=== PATIENT | female | born 1970 | race Asian ===

== ENCOUNTER → 2017-02-15 | Outpatient (CLI) | payer OTHER ==
[~2017-02-15] MED LIST: ALLO100T30 PO; ATOR20TA9 PO; CYCL-259 PO; DOXY100C2 PO; GABA300C10 PO; OMEG1CAP24 PO; OXYC-307 PO; OXYC10TA6 PO; PIND5TAB PO; PNV1TABL97 PO; TAMO20TA PO; voltaren PO
[2017-02-15 16:49] LABS: BASOPHILS # (AUTO) 0.03 x10^3/uL (0-0.1); BASOPHILS % (AUTO) 1 % (0-1); EOSINOPHILS # (AUTO) 0.31 x10^3/uL (0-0.4); EOSINOPHILS % (AUTO) 5 % (1-7); LYMPHOCYTES # (AUTO) 2.33 x10^3/uL (1-3.4); LYMPHOCYTES % (AUTO) 34 % (22-44); MD NO; MEAN CORPUSCULAR HEMOGLOBIN 29.2 pg (27.0-34.8); MEAN CORPUSCULAR HGB CONC 32.9 g/dL (32.4-35.8); MEAN CORPUSCULAR VOLUME 88.8 fL (80-100); MEAN PLATELET VOLUME 6.9 fL (7.4-10.4); MONOCYTES # (AUTO) 0.53 x10^3/uL (0.2-0.8); MONOCYTES % (AUTO) 8 % (2-9); NEUTROPHILS # (AUTO) 3.66 x10^3/uL (1.8-6.8); NEUTROPHILS % (AUTO) 53 % (42-75); PLATELET COUNT 346 x10^3/uL (130-400); RED CELL DISTRIBUTION WIDTH 14.8 % (9.6-15.2)
[2017-02-15 16:54] LABS: CULTURE INDICATED? YES; MICROSCOPIC INDICATED
[2017-02-15 16:58] LABS: ALANINE AMINOTRANSFERASE 43 U/L (12-78); ANION GAP 7 mmol/L (5-15); CALCIUM 9.2 mg/dL (8.5-10.1); CHLORIDE 108 mmol/L (98-107); CREATININE 0.79 mg/dL (0.55-1.02)
[2017-02-15 17:00] LABS: ALKALINE PHOSPHATASE 108 U/L (45-117); BILIRUBIN,TOTAL 0.2 mg/dL (0.2-1.0); INTERNATIONAL NORMALIZED RATIO 0.96 (0.93-1.1); TOTAL PROTEIN 7.9 g/dL (6.4-8.2)
== END | disposition home or self-care (01) ==
LOC: STAR 15:30
PROVIDERS: ATTEND Neurological Surgery
DX: Z01.818 Encounter for other preprocedural examination (principal); M51.36 Other intervertebral disc degeneration, lumbar region
CPT/HCPCS: 36415; 71046; 80053; 81001; 85025; 85610; 85730; 87077; 87086; 87186; 93005

== ENCOUNTER 2017-02-24 05:43 | Inpatient (IN) | payer OTHER ==
[2017-02-22 14:13] LABS: CULTURE INDICATED? NO; MICROSCOPIC NOT IND
[~2017-02-24] VITALS: Ht 160 cm; Wt 106.6 kg
[~2017-02-24 05:43] MED LIST changes: -DOXY100C2 PO; -OXYC10TA6 PO
[2017-02-24] MEDS ORDERED: THROMBIN 5,000 UNIT VIAL TP ONE (06:13)
[2017-02-24] MEDS ORDERED: BACITRACIN 50,000 UNIT ONE (06:13)
[2017-02-24] MEDS ORDERED: HEPARIN 1,000 UNITS/ML, 30ML ONE (06:13)
[2017-02-24 06:17] VITALS: BP 141/91
[2017-02-24 06:19] LABS: HCG UR SG 1.014 (1.003-1.030)
[2017-02-24] MEDS ORDERED: PROPOFOL 100 ML ONE (06:30)
[2017-02-24] MEDS ORDERED: FENTANYL PF 250 MCG/5ML ONE (06:30)
[2017-02-24] MEDS ORDERED: MIDAZOLAM 1 MG/ML, 2ML ONE (06:30)
[2017-02-24] MEDS ORDERED: PROPOFOL 10 MG/ML, 20ML ONE ×3 (06:31→11:04)
[2017-02-24] MEDS ORDERED: LIDOCAINE 1%, 2ML ONE (06:31)
[2017-02-24] MEDS ORDERED: LACTATED RINGERS 1,000 ML IV SCH (06:44)
[2017-02-24] MEDS ORDERED: LIDOCAINE 1%, 2ML SQ PRN (07:00)
[2017-02-24] MEDS ORDERED: CEFAZOLIN 1,000 MG ONE (07:01)
[2017-02-24] MEDS ORDERED: HEPARIN 1,000 UNITS/ML, 30ML IVPB ONE (07:36)
[2017-02-24] MEDS ORDERED: ACETAMINOPHEN 325 MG TABLET PO PRN (08:00)
[2017-02-24] MEDS ORDERED: MEPERIDINE/PF 25MG/0.5ML IVPush PRN (08:00)
[2017-02-24] MEDS ORDERED: PROMETHAZINE 25 MG/ML, 1ML IV PRN (08:00)
[2017-02-24] MEDS ORDERED: ONDANSETRON 2MG/ML, 2ML IVPush PRN (08:00)
[2017-02-24] MEDS ORDERED: hydrALAzine 20 MG/ML, 1ML IV PRN (08:00)
[2017-02-24] MEDS ORDERED: OXYcodone 5 MG/5 ML ORAL.SOL UDC PO PRN (08:00)
[2017-02-24] MEDS ORDERED: FENTANYL PF 100 MCG/2ML IV PRN (08:00)
[2017-02-24] MEDS ORDERED: LABETALOL 5MG/ML, 20ML IV PRN (08:00)
[2017-02-24] MEDS ORDERED: DEXAMETHASONE 4 MG/ML, 1ML ONE ×2 (08:34)
[2017-02-24] MEDS ORDERED: ONDANSETRON 2MG/ML, 2ML ONE (08:34)
[2017-02-24] MEDS ORDERED: ROCURONIUM 10 MG/ML,10ML ONE (08:34)
[2017-02-24] MEDS ORDERED: HYDROmorphone 2 MG/ML, 1ML ONE ×3 (09:23→10:46)
[2017-02-24] MEDS ORDERED: PROMETHAZINE 25 MG/ML, 1ML IM PRN (09:30)
[2017-02-24] MEDS ORDERED: OXYcodone/APAP 5/325MG TABLET PO PRN (09:30)
[2017-02-24] MEDS ORDERED: DIPHENHYDRAMINE 50 MG/ML, 1ML IVPush PRN (09:30)
[2017-02-24] MEDS ORDERED: morphine SULFATE 10 MG/ML, 1ML IVPush PRN (09:30)
[2017-02-24] MEDS ORDERED: PHARMACY MAY ADJ FOR RENAL FX MC PRN (09:30)
[2017-02-24] MEDS ORDERED: BISACODYL 10 MG SUPP PR PRN (09:30)
[2017-02-24] MEDS ORDERED: SENNA/DOCUSATE TABLET PO PRN (09:30)
[2017-02-24] MEDS ORDERED: OXYcodone 5 MG/5 ML ORAL.SOL UDC ONE (09:52)
[2017-02-24] MEDS ORDERED: ACETAMINOPHEN 650 MG/20.3 ML UDC ONE (09:52)
[2017-02-24] MEDS ORDERED: OXYcodone IR 5MG TABLET PO PRN (10:00)
[2017-02-24] MEDS: HYDROmorphone 1 MG/ML, 1ML IV PRN ×5 (10:05→10:47)
[2017-02-24] MEDS ORDERED: DIAZEPAM 5 MG/ML, 2ML IVPush PRN (11:00)
[2017-02-24 12:15] VITALS: BP 116/54
[2017-02-24] MEDS: HYDROcodone/APAP 10/325 MG TABLET PO PRN ×3 (12:45→21:10)
[2017-02-24] MEDS: D5%-0.9% NACL+KCL 20MEQ 1,000 ML IV SCH ×2 (13:36→22:52)
[2017-02-24] MEDS: CEFAZOLIN PMX 1GM/50ML 50 ML IVPB SCH ×2 (14:54→23:09)
[2017-02-24] MEDS: CYCLOBENZAPRINE 10 MG TABLET PO SCH ×2 (15:59→21:10)
[2017-02-24] MEDS: GABAPENTIN 300 MG CAPSULE PO SCH ×2 (15:59→21:10)
[2017-02-24 18:44] VITALS: BP 118/53
[2017-02-24] MEDS: SODIUM CHLORIDE FLUSH 10ML SYR IVF SCH (21:00)
[2017-02-24] MEDS: ATORVASTATIN 20 MG TABLET PO SCH (21:10)
[2017-02-24 23:47] VITALS: BP 108/56
[2017-02-25] MEDS: HYDROcodone/APAP 10/325 MG TABLET PO PRN ×6 (01:28→23:04)
[2017-02-25 02:45] VITALS: BP 110/56
[2017-02-25 05:58] LABS: BASOPHILS # (AUTO) 0.01 x10^3/uL (0-0.1); BASOPHILS % (AUTO) 0 % (0-1); EOSINOPHILS % (AUTO) 0 % (1-7); LYMPHOCYTES # (AUTO) 1.39 x10^3/uL (1-3.4); LYMPHOCYTES % (AUTO) 14 % (22-44); MD NO; MEAN CORPUSCULAR HEMOGLOBIN 29.2 pg (27.0-34.8); MEAN CORPUSCULAR HGB CONC 32.7 g/dL (32.4-35.8); MEAN CORPUSCULAR VOLUME 89.2 fL (80-100); MEAN PLATELET VOLUME 7.1 fL (7.4-10.4); MONOCYTES % (AUTO) 11 % (2-9); NEUTROPHILS % (AUTO) 75 % (42-75); PLATELET COUNT 257 x10^3/uL (130-400); RED BLOOD COUNT 3.12 x10^6/uL (3.82-5.3); RED CELL DISTRIBUTION WIDTH 14.9 % (9.6-15.2)
[2017-02-25] MEDS: D5%-0.9% NACL+KCL 20MEQ 1,000 ML IV SCH ×2 (07:29→18:42)
[2017-02-25] MEDS: GABAPENTIN 300 MG CAPSULE PO SCH ×3 (08:01→20:59)
[2017-02-25] MEDS: CYCLOBENZAPRINE 10 MG TABLET PO SCH ×3 (08:01→20:59)
[2017-02-25] MEDS: ALLOPURINOL 300 MG TABLET PO SCH (08:01)
[2017-02-25] MEDS: SODIUM CHLORIDE FLUSH 10ML SYR IVF SCH ×2 (08:01→21:00)
[2017-02-25] MEDS: TAMOXIFEN 10 MG TABLET PO SCH (08:08)
[2017-02-25 08:47] VITALS: BP 95/63
[2017-02-25] MEDS: METOCLOPRAMIDE 5 MG/ML, 2ML IV SCH ×3 (10:12→23:14)
[2017-02-25 13:30] VITALS: BP 100/62
[2017-02-25 19:52] VITALS: BP 95/57
[2017-02-25] MEDS: ATORVASTATIN 20 MG TABLET PO SCH (20:59)
[2017-02-26] MEDS ORDERED: LACTATED RINGERS 1,000 ML IV SCH
[2017-02-26 01:23] VITALS: BP 139/82
[2017-02-26] MEDS: HYDROcodone/APAP 10/325 MG TABLET PO PRN ×4 (03:12→21:20)
[2017-02-26 05:27] LABS: INTERNATIONAL NORMALIZED RATIO 0.97 (0.93-1.1); PROTHROMBIN TIME 10.1 Seconds (9.6-11.5)
[2017-02-26 05:31] LABS: ANION GAP 6 mmol/L (5-15); CALCIUM 7.7 mg/dL (8.5-10.1); CHLORIDE 107 mmol/L (98-107)
[2017-02-26 05:33] LABS: CREATININE 0.56 mg/dL (0.55-1.02)
[2017-02-26 05:42] LABS: BASOPHILS # (AUTO) 0.03 x10^3/uL (0-0.1); BASOPHILS % (AUTO) 0 % (0-1); EOSINOPHILS # (AUTO) 0.07 x10^3/uL (0-0.4); EOSINOPHILS % (AUTO) 1 % (1-7); LYMPHOCYTES # (AUTO) 1.66 x10^3/uL (1-3.4); LYMPHOCYTES % (AUTO) 14 % (22-44); MD NO; MEAN CORPUSCULAR HEMOGLOBIN 29.2 pg (27.0-34.8); MEAN CORPUSCULAR HGB CONC 32.9 g/dL (32.4-35.8); MEAN CORPUSCULAR VOLUME 88.9 fL (80-100); MEAN PLATELET VOLUME 7.1 fL (7.4-10.4); MONOCYTES % (AUTO) 11 % (2-9); NEUTROPHILS # (AUTO) 8.83 x10^3/uL (1.8-6.8); NEUTROPHILS % (AUTO) 74 % (42-75); PLATELET COUNT 249 x10^3/uL (130-400); RED BLOOD COUNT 3.05 x10^6/uL (3.82-5.3); RED CELL DISTRIBUTION WIDTH 14.8 % (9.6-15.2)
[2017-02-26] MEDS ORDERED: ACETAMINOPHEN 325 MG TABLET PO PRN (07:00)
[2017-02-26] MEDS ORDERED: OXYcodone 5 MG/5 ML ORAL.SOL UDC PO PRN (07:00)
[2017-02-26] MEDS ORDERED: MEPERIDINE/PF 25MG/0.5ML IVPush PRN (07:00)
[2017-02-26] MEDS ORDERED: PROMETHAZINE 25 MG/ML, 1ML IV PRN (07:00)
[2017-02-26] MEDS ORDERED: DIAZEPAM 5 MG/ML, 2ML IVPush PRN (07:00)
[2017-02-26] MEDS ORDERED: FENTANYL PF 100 MCG/2ML IV PRN (07:00)
[2017-02-26] MEDS ORDERED: HYDROmorphone 1 MG/ML, 1ML IV PRN (07:00)
[2017-02-26] MEDS ORDERED: hydrALAzine 20 MG/ML, 1ML IV PRN (07:00)
[2017-02-26] MEDS ORDERED: ONDANSETRON 2MG/ML, 2ML IVPush PRN (07:00)
[2017-02-26] MEDS ORDERED: LABETALOL 5MG/ML, 20ML IV PRN (07:00)
[2017-02-26] MEDS ORDERED: BUPIVACAINE/PF-EPI 0.5% 1:200K IM ONE (07:58)
[2017-02-26] MEDS: ALLOPURINOL 300 MG TABLET PO SCH (09:00)
[2017-02-26] MEDS: GABAPENTIN 300 MG CAPSULE PO SCH ×3 (09:00→21:20)
[2017-02-26] MEDS: TAMOXIFEN 10 MG TABLET PO SCH (09:00)
[2017-02-26] MEDS: CYCLOBENZAPRINE 10 MG TABLET PO SCH (09:00)
[2017-02-26] MEDS: SODIUM CHLORIDE FLUSH 10ML SYR IVF SCH (09:00)
[2017-02-26] MEDS ORDERED: OXYcodone 5 MG/5 ML ORAL.SOL UDC ONE (11:37)
[2017-02-26 14:34] VITALS: BP 115/79
[2017-02-26] MEDS: morphine SULFATE 10 MG/ML, 1ML IV PRN (15:25)
[2017-02-26] MEDS ORDERED: DIPHENHYDRAMINE 25 MG CAPSULE PO PRN (15:30)
[2017-02-26] MEDS ORDERED: DIPHENHYDRAMINE 50 MG/ML, 1ML IVPush PRN (15:30)
[2017-02-26] MEDS ORDERED: CYCLOBENZAPRINE 10 MG TABLET PO SCH (16:00)
[2017-02-26] MEDS: METHOCARBAMOL 750 MG in DEXTROSE 5% 100 ML IV SCH ×2 (17:35→21:21)
[2017-02-26] MEDS: LACTATED RINGERS 1,000 ML IV SCH (17:35)
[2017-02-26] MEDS: CEFAZOLIN PMX 1GM/50ML 50 ML IVPB SCH (18:19)
[2017-02-26] MEDS: METOCLOPRAMIDE 5 MG/ML, 2ML IVPush SCH (18:21)
[2017-02-26 19:56] VITALS: BP 119/55
[2017-02-26] MEDS: ATORVASTATIN 20 MG TABLET PO SCH (21:20)
[2017-02-26] MEDS: FAMOTIDINE 20 MG TABLET PO SCH (21:20)
[2017-02-27] VITALS: BP 153/85
[2017-02-27] MEDS: HYDROcodone/APAP 10/325 MG TABLET PO PRN ×6 (01:27→21:34)
[2017-02-27] MEDS: METOCLOPRAMIDE 5 MG/ML, 2ML IVPush SCH (01:27)
[2017-02-27] MEDS: CEFAZOLIN PMX 1GM/50ML 50 ML IVPB SCH (01:28)
[2017-02-27] MEDS: LACTATED RINGERS 1,000 ML IV SCH ×3 (03:16→21:36)
[2017-02-27] MEDS: METHOCARBAMOL 750 MG in DEXTROSE 5% 100 ML IV SCH ×2 (03:17→10:05)
[2017-02-27 04:15] VITALS: BP 121/62
[2017-02-27 05:27] LABS: BASOPHILS # (AUTO) 0.03 x10^3/uL (0-0.1); BASOPHILS % (AUTO) 0 % (0-1); EOSINOPHILS # (AUTO) 0.02 x10^3/uL (0-0.4); EOSINOPHILS % (AUTO) 0 % (1-7); LYMPHOCYTES # (AUTO) 1.62 x10^3/uL (1-3.4); LYMPHOCYTES % (AUTO) 15 % (22-44); MD NO; MEAN CORPUSCULAR HEMOGLOBIN 30.2 pg (27.0-34.8); MEAN CORPUSCULAR HGB CONC 33.4 g/dL (32.4-35.8); MEAN CORPUSCULAR VOLUME 90.3 fL (80-100); MEAN PLATELET VOLUME 7.2 fL (7.4-10.4); MONOCYTES # (AUTO) 1.33 x10^3/uL (0.2-0.8); MONOCYTES % (AUTO) 12 % (2-9); NEUTROPHILS # (AUTO) 7.87 x10^3/uL (1.8-6.8); NEUTROPHILS % (AUTO) 72 % (42-75); PLATELET COUNT 198 x10^3/uL (130-400); RED BLOOD COUNT 2.82 x10^6/uL (3.82-5.3); RED CELL DISTRIBUTION WIDTH 13.8 % (9.6-15.2)
[2017-02-27] MEDS: ENOXAPARIN 30 MG/0.3 ML SQ SCH ×2 (05:35→17:29)
[2017-02-27 05:36] LABS: ANION GAP 6 mmol/L (5-15); CALCIUM 7.3 mg/dL (8.5-10.1); CHLORIDE 105 mmol/L (98-107)
[2017-02-27 07:32] VITALS: BP 118/71
[2017-02-27] MEDS: TAMOXIFEN 10 MG TABLET PO SCH (08:55)
[2017-02-27] MEDS: FAMOTIDINE 20 MG TABLET PO SCH ×2 (09:03→21:34)
[2017-02-27] MEDS: ALLOPURINOL 300 MG TABLET PO SCH (09:03)
[2017-02-27] MEDS: GABAPENTIN 300 MG CAPSULE PO SCH ×3 (09:03→21:34)
[2017-02-27 14:00] VITALS: BP 127/80
[2017-02-27] MEDS ORDERED: CYCLOBENZAPRINE 10 MG TABLET PO PRN (16:00)
[2017-02-27] MEDS: morphine SULFATE 10 MG/ML, 1ML IV PRN ×2 (16:20→19:07)
[2017-02-27 20:23] VITALS: BP 110/52
[2017-02-27] MEDS: ATORVASTATIN 20 MG TABLET PO SCH (21:33)
[2017-02-28 01:46] VITALS: BP 125/70
[2017-02-28] MEDS: HYDROcodone/APAP 10/325 MG TABLET PO PRN ×2 (01:48→06:03)
[2017-02-28 05:29] LABS: BASOPHILS # (AUTO) 0.03 x10^3/uL (0-0.1); BASOPHILS % (AUTO) 0 % (0-1); EOSINOPHILS # (AUTO) 0.42 x10^3/uL (0-0.4); EOSINOPHILS % (AUTO) 5 % (1-7); LYMPHOCYTES # (AUTO) 1.87 x10^3/uL (1-3.4); LYMPHOCYTES % (AUTO) 20 % (22-44); MD NO; MEAN CORPUSCULAR HEMOGLOBIN 30.2 pg (27.0-34.8); MEAN CORPUSCULAR HGB CONC 33.3 g/dL (32.4-35.8); MEAN CORPUSCULAR VOLUME 90.6 fL (80-100); MEAN PLATELET VOLUME 7.1 fL (7.4-10.4); MONOCYTES # (AUTO) 1.01 x10^3/uL (0.2-0.8); MONOCYTES % (AUTO) 11 % (2-9); NEUTROPHILS # (AUTO) 5.99 x10^3/uL (1.8-6.8); NEUTROPHILS % (AUTO) 64 % (42-75); PLATELET COUNT 211 x10^3/uL (130-400); RED BLOOD COUNT 2.56 x10^6/uL (3.82-5.3); RED CELL DISTRIBUTION WIDTH 14.2 % (9.6-15.2)
[2017-02-28 05:43] LABS: CHLORIDE 108 mmol/L (98-107)
[2017-02-28 05:48] LABS: ANION GAP 4 mmol/L (5-15); CALCIUM 7.5 mg/dL (8.5-10.1); CREATININE 0.39 mg/dL (0.55-1.02)
[2017-02-28] MEDS: ENOXAPARIN 30 MG/0.3 ML SQ SCH ×2 (06:17→18:09)
[2017-02-28] MEDS: LACTATED RINGERS 1,000 ML IV SCH ×3 (06:20→23:30)
[2017-02-28 07:54] VITALS: BP 115/71
[2017-02-28] MEDS ORDERED: HYDROcodone/APAP 10/325 MG TABLET PO PRN (08:30)
[2017-02-28] MEDS ORDERED: POLYETHYLENE GLYCOL 17 GM PACKET NG ONE (08:30)
[2017-02-28] MEDS ORDERED: OXYcodone IR 5MG TABLET PO PRN (09:00)
[2017-02-28] MEDS: TAMOXIFEN 10 MG TABLET PO SCH (09:00)
[2017-02-28] MEDS: ONDANSETRON 2MG/ML, 2ML IVPush PRN (09:43)
[2017-02-28] MEDS: ALLOPURINOL 300 MG TABLET PO SCH (09:44)
[2017-02-28] MEDS: DOXYCYCLINE 100MG TABLET PO SCH ×2 (09:44→20:08)
[2017-02-28] MEDS: GABAPENTIN 300 MG CAPSULE PO SCH ×3 (09:44→20:08)
[2017-02-28] MEDS: FAMOTIDINE 20 MG TABLET PO SCH ×2 (09:44→20:08)
[2017-02-28] MEDS: OXYcodone/APAP 10/325MG TABLET PO PRN ×4 (09:44→23:21)
[2017-02-28] MEDS: KETOROLAC 30 MG/1 ML IV PRN ×2 (09:44→18:09)
[2017-02-28 13:03] VITALS: BP 101/67
[2017-02-28 19:57] VITALS: BP 105/57
[2017-02-28] MEDS: ATORVASTATIN 20 MG TABLET PO SCH (20:08)
[2017-03-01 01:35] VITALS: BP 109/51
[2017-03-01] MEDS: OXYcodone/APAP 10/325MG TABLET PO PRN ×3 (03:55→12:12)
[2017-03-01] MEDS: KETOROLAC 30 MG/1 ML IV PRN (05:29)
[2017-03-01] MEDS: ENOXAPARIN 30 MG/0.3 ML SQ SCH (05:32)
[2017-03-01 05:50] LABS: BASOPHILS # (AUTO) 0.04 x10^3/uL (0-0.1); BASOPHILS % (AUTO) 0 % (0-1); EOSINOPHILS # (AUTO) 0.43 x10^3/uL (0-0.4); EOSINOPHILS % (AUTO) 4 % (1-7); LYMPHOCYTES # (AUTO) 1.57 x10^3/uL (1-3.4); LYMPHOCYTES % (AUTO) 16 % (22-44); MD NO; MEAN CORPUSCULAR HGB CONC 33.4 g/dL (32.4-35.8); MEAN CORPUSCULAR VOLUME 89.6 fL (80-100); MEAN PLATELET VOLUME 6.9 fL (7.4-10.4); MONOCYTES # (AUTO) 1.06 x10^3/uL (0.2-0.8); MONOCYTES % (AUTO) 11 % (2-9); NEUTROPHILS # (AUTO) 6.68 x10^3/uL (1.8-6.8); NEUTROPHILS % (AUTO) 68 % (42-75); PLATELET COUNT 236 x10^3/uL (130-400); RED BLOOD COUNT 2.51 x10^6/uL (3.82-5.3); RED CELL DISTRIBUTION WIDTH 14.4 % (9.6-15.2)
[2017-03-01 05:54] LABS: CHLORIDE 106 mmol/L (98-107)
[2017-03-01 06:09] LABS: ANION GAP 9 mmol/L (5-15); CALCIUM 7.7 mg/dL (8.5-10.1)
[2017-03-01 07:01] VITALS: BP 133/77
[2017-03-01] MEDS: LACTATED RINGERS 1,000 ML IV SCH (07:50)
[2017-03-01] MEDS: TAMOXIFEN 10 MG TABLET PO SCH (08:39)
[2017-03-01] MEDS: ALLOPURINOL 300 MG TABLET PO SCH (08:48)
[2017-03-01] MEDS: ONDANSETRON 2MG/ML, 2ML IVPush PRN (08:48)
[2017-03-01] MEDS: GABAPENTIN 300 MG CAPSULE PO SCH (08:48)
[2017-03-01] MEDS: FAMOTIDINE 20 MG TABLET PO SCH (08:49)
[2017-03-01] MEDS: DOXYCYCLINE 100MG TABLET PO SCH (08:49)
[2017-03-01] MEDS ORDERED: OXYC10TA6 PO (11:44)
[2017-03-01] MEDS ORDERED: CYCL-259 PO (11:45)
[2017-03-01] MEDS ORDERED: DOXY100C2 PO (11:49)
[2017-03-01 13:04] VITALS: BP 102/59
[2017-03-01 13:07] VITALS: BP 139/80
== END 2017-03-01 14:38 | disposition home or self-care (01) | DRG 460 ==
LOC: ORIP 05:43 → 4NOR 12:00 → MERGE 16:00 → DCLOUNGE 03-01 14:21
PROVIDERS: ADMIT Neurological Surgery; ATTEND Neurological Surgery
PROC: 0SG30A0 Fusion of Lumbosacral Joint with Interbody Fusion Device, Anterior Approach, Anterior Column, Open Approach (ICD-10-PCS; 2017-02-24)
PROC: 4A11X4G Monitoring of Peripheral Nervous Electrical Activity, Intraoperative, External Approach (ICD-10-PCS; 2017-02-24)
PROC: 0SG00A0 Fusion of Lumbar Vertebral Joint with Interbody Fusion Device, Anterior Approach, Anterior Column, Open Approach (ICD-10-PCS; principal; 2017-02-24 07:00)
DX: M48.061 Spinal stenosis, lumbar region without neurogenic claudication (principal); D64.9 Anemia, unspecified; M51.17 Intervertebral disc disorders with radiculopathy, lumbosacral region; E66.9 Obesity, unspecified; G89.29 Other chronic pain; I10 Essential (primary) hypertension; M43.16 Spondylolisthesis, lumbar region; Z68.38 Body mass index [BMI] 38.0-38.9, adult
CPT/HCPCS: 36415; 72100; 72131; 74018; 80048; 81003; 81025; 85025; 85610; 86850; 86900; 86923; C1713; J0171; J0690; J1100; J1170; J1644; J1650; J1885; J2250; J2405; J2704; J2710; J3010; J3360; J3490; C1762; C1781; J2270; J2765; J2800; J3480; J7120; P9016